=== PATIENT | male | born 1955 | race Caucasian/White ===

== ENCOUNTER → 2017-04-06 | Outpatient (CLI) | payer OTHER ==
[~2017-04-06] MED LIST: ASPIR 8181 M1 PO; ENDOCET 5-3251 EACH PO; LIPITOR40 MG PO; NORVASC5 MG PO
== END | disposition home or self-care (01) ==
LOC: CDC 10:09
DX: C61 Malignant neoplasm of prostate (principal)
CPT/HCPCS: 93000

== ENCOUNTER 2017-04-10 22:06 | Inpatient (IN) | payer OTHER ==
[~2017-04-10] VITALS: Ht 182.9 cm; Wt 98.4 kg
[~2017-04-10 22:06] MED LIST changes: -ENDOCET 5-3251 EACH PO
[2017-04-11 06:41] VITALS: BP 149/86
[2017-04-11 14:49] LABS: HEMATOCRIT 34.9 % (38.0-50.0); MCV 94.8 FL (86-99)
[2017-04-11 15:59] VITALS: BP 103/60
[2017-04-11 19:10] VITALS: BP 100/57
[2017-04-11 22:51] VITALS: BP 98/53
[2017-04-12 03:15] VITALS: BP 102/59
[2017-04-12 07:30] VITALS: BP 91/61
[2017-04-12 09:04] LABS: ANION GAP 7 MEQ/L (2-14); CHLORIDE 104 MEQ/L (99-109); GFR ESTIMATE (CALCULATED) > 59 mL/min/; GLUCOSE 95 mg/dL (70-99); POTASSIUM 4.2 MEQ/L (3.7-5.4); SAMPLE HEMOLYSIS CHECK 0; SAMPLE ICTERIC CHECK 0; SAMPLE LIPEMIA CHECK 0; SODIUM 137 MEQ/L (136-147); UREA NITROGEN (BUN) 16 mg/dL (9-23)
[2017-04-12 10:00] VITALS: BP 100/55
[2017-04-12 15:20] VITALS: BP 112/61
[2017-04-13] VITALS: BP 112/61
[2017-04-13 00:36] VITALS: BP 112/61
[2017-04-13] MEDS ORDERED: ENDOCET 5-3251 EACH PO (09:34)
== END 2017-04-13 12:40 | disposition home or self-care (01) | DRG 708 ==
LOC: 2SOUTH → ENRESERV 22:06 → 2SOUTH 04-11 05:40 → ENRESERV 04-11 13:22 → 5EAST 04-11 15:11 → ENPENDDIS 04-13 → 5EAST 04-13 12:40
PROVIDERS: Urology
PROC: 07BC0ZX Excision of Pelvis Lymphatic, Open Approach, Diagnostic (ICD-10-PCS; principal; 2017-04-11)
PROC: 0VT00ZZ Resection of Prostate, Open Approach (ICD-10-PCS; principal; 2017-04-11)
DX: C61 Malignant neoplasm of prostate (principal); I10 Essential (primary) hypertension; Z82.49 Family history of ischemic heart disease and other diseases of the circulatory system; E78.5 Hyperlipidemia, unspecified; Z84.2 Family history of other diseases of the genitourinary system
CPT/HCPCS: 80048; 85014; 85018; 88305; 88309; J0131; J0330; J1100; J1170; J1335; J1885; J2250; J2405; J2710; J3010; J7050; J7120

== ENCOUNTER 2017-04-15 18:21 | Emergency (ER) | payer OTHER ==
[~2017-04-15] VITALS: Ht 182.9 cm; Wt 92.4 kg
[~2017-04-15 18:21] MED LIST changes: +ENDOCET 5-3251 EACH PO
[2017-04-15 20:40] VITALS: BP 157/88
== END 2017-04-15 20:41 | disposition home or self-care (01) ==
LOC: EME 18:21 → RME 18:21
DX: T83.091A Other mechanical complication of indwelling urethral catheter, initial encounter (principal); Y73.8 Miscellaneous gastroenterology and urology devices associated with adverse incidents, not elsewhere classified; Z85.46 Personal history of malignant neoplasm of prostate; I10 Essential (primary) hypertension; Z90.79 Acquired absence of other genital organ(s); Z79.82 Long term (current) use of aspirin
CPT/HCPCS: 99281

== ENCOUNTER 2017-06-03 11:32 | Inpatient (IN) | payer OTHER ==
[~2017-06-03] VITALS: Ht 182.9 cm; Wt 89.9 kg
[2017-06-03 11:55] LABS: HEMATOCRIT 39.3 % (38.0-50.0); MCH 30.3 PG (29.0-34.0); MCHC 33.6 G/DL (30.0-36.0); MCV 90.3 FL (86-99); MEAN PLAT.VOLUME 10.3 uM^3 (9.0-12.4); PLATELET COUNT 291 K/uL (156-360); RBC DIS.WIDTH-CV 16.5 % (11.8-14.6); RBC DIS.WIDTH-SD 55.2 % (39-53); RED BLOOD COUNT 4.35 M/uL (4.00-5.50); WHITE BLOOD COUNT 6.8 K/uL (4.1-10.2)
[2017-06-03 12:03] LABS: CHLORIDE 99 mEq/L (99-109); POTASSIUM 3.6 mEq/L (3.7-5.4); SODIUM 134 mEq/L (136-147)
[2017-06-03 12:06] LABS: GLUCOSE 109 mg/dL (70-99)
[2017-06-03 12:07] LABS: ANION GAP 11 MEQ/L (2-14); TOTAL BILIRUBIN 17.4 mg/dL (0.0-1.0)
[2017-06-03 12:09] LABS: ALKALINE PHOSPHATASE 1320 IU/L (3-129); GFR ESTIMATE (CALCULATED) > 59 mL/min/
[2017-06-03 12:11] LABS: DIRECT BILIRUBIN 11.6 mg/dL (0.0-0.3); UREA NITROGEN (BUN) 10 mg/dL (9-23)
[2017-06-03 12:13] LABS: LIPASE 30 U/L (1.0-51.0)
[2017-06-03 12:40] LABS: ADD MIUA? NO; BILIRUBIN MODERATE; BLOOD NEGATIVE; COLOR AMBER ((YELLOW)); GLUCOSE (STRIP) NEGATIVE; KETONES NEGATIVE; LEUKOCYTES NEGATIVE; NITRITE NEGATIVE; PROTEIN (STRIP) NEGATIVE; UCUL ADDED? NO
[2017-06-03 13:05] LABS: ICTOTEST POSITIVE
[2017-06-03 16:30] VITALS: BP 124/80
[2017-06-03 20:05] VITALS: BP 136/77
[2017-06-04] VITALS (7 sets, daily range): BP systolic 137–168; BP diastolic 63–88
[2017-06-04 06:54] LABS: HEMATOCRIT 35.4 % (38.0-50.0); MCH 29.9 PG (29.0-34.0); MCHC 33.1 G/DL (30.0-36.0); MCV 90.5 FL (86-99); MEAN PLAT.VOLUME 11.1 uM^3 (9.0-12.4); PLATELET COUNT 291 K/uL (156-360); RBC DIS.WIDTH-CV 16.3 % (11.8-14.6); RBC DIS.WIDTH-SD 54.7 % (39-53); RED BLOOD COUNT 3.91 M/uL (4.00-5.50); WHITE BLOOD COUNT 6.3 K/uL (4.1-10.2)
[2017-06-04 07:38] LABS: ALKALINE PHOSPHATASE 1200 IU/L (3-129); ANION GAP 9 MEQ/L (2-14); CHLORIDE 103 MEQ/L (99-109); GFR ESTIMATE (CALCULATED) > 59 mL/min/; GLUCOSE 121 mg/dL (70-99); SAMPLE HEMOLYSIS CHECK 0; SAMPLE ICTERIC CHECK 3; SAMPLE LIPEMIA CHECK 0; SODIUM 138 MEQ/L (136-147); UREA NITROGEN (BUN) 11 mg/dL (9-23)
[2017-06-05 03:39] VITALS: BP 134/72
[2017-06-05 06:29] LABS: BASOPHIL COUNT 0.1 K/uL (0-0.1); EOSINOPHIL (%) 5.5 % (0-5); EOSINOPHIL COUNT 0.4 K/uL (0-0.3); HEMATOCRIT 33.4 % (38.0-50.0); IMMATURE GRANULOCYTE (%) 0.3 % (0.0-0.7); INSTRUMENT ABS NEUTROPHIL CT 4.8 K/uL; LYMPHOCYTE COUNT 0.8 K/uL (1.0-2.8); MCH 31.6 PG (29.0-34.0); MCHC 35.3 G/DL (30.0-36.0); MCV 89.5 FL (86-99); MEAN PLAT.VOLUME 10.8 uM^3 (9.0-12.4); MONOCYTE (%) 9.1 % (3-12); MONOCYTE COUNT 0.6 K/uL (0-0.8); NEUTROPHIL (%) 71.5 % (45-76); NEUTROPHIL COUNT 4.8 K/uL (1.8-6.4); PLATELET COUNT 271 K/uL (156-360); RBC DIS.WIDTH-CV 16.7 % (11.8-14.6); RED BLOOD COUNT 3.73 M/uL (4.00-5.50); WHITE BLOOD COUNT 6.7 K/uL (4.1-10.2)
[2017-06-05 07:10] LABS: ALKALINE PHOSPHATASE 1055 IU/L (3-129); ANION GAP 9 MEQ/L (2-14); CHLORIDE 103 MEQ/L (99-109); GFR ESTIMATE (CALCULATED) > 59 mL/min/; GLUCOSE 118 mg/dL (70-99); POTASSIUM 3.6 MEQ/L (3.7-5.4); SAMPLE HEMOLYSIS CHECK 0; SAMPLE ICTERIC CHECK 3; SAMPLE LIPEMIA CHECK 0; SODIUM 138 MEQ/L (136-147); TOTAL BILIRUBIN 15.8 MG/DL (0.0-1.0); UREA NITROGEN (BUN) 8 mg/dL (9-23)
[2017-06-05 07:31] VITALS: BP 131/70
[2017-06-05 12:01] VITALS: BP 145/79
[2017-06-05 16:18] VITALS: BP 152/76
[2017-06-05 19:44] VITALS: BP 157/76
[2017-06-06] VITALS (7 sets, daily range): BP systolic 116–153; BP diastolic 64–89
[2017-06-06 06:47] LABS: BASOPHIL COUNT 0.1 K/uL (0-0.1); EOSINOPHIL (%) 6.1 % (0-5); EOSINOPHIL COUNT 0.4 K/uL (0-0.3); HEMATOCRIT 34.2 % (38.0-50.0); IMMATURE GRANULOCYTE (%) 0.3 % (0.0-0.7); INSTRUMENT ABS NEUTROPHIL CT 4.9 K/uL; LYMPHOCYTE COUNT 0.8 K/uL (1.0-2.8); MCH 30.1 PG (29.0-34.0); MCHC 33.6 G/DL (30.0-36.0); MCV 89.5 FL (86-99); MEAN PLAT.VOLUME 10.9 uM^3 (9.0-12.4); MONOCYTE (%) 9.4 % (3-12); MONOCYTE COUNT 0.7 K/uL (0-0.8); NEUTROPHIL (%) 71.6 % (45-76); NEUTROPHIL COUNT 4.9 K/uL (1.8-6.4); PLATELET COUNT 277 K/uL (156-360); RBC DIS.WIDTH-CV 16.6 % (11.8-14.6); RBC DIS.WIDTH-SD 54.4 % (39-53); RED BLOOD COUNT 3.82 M/uL (4.00-5.50); WHITE BLOOD COUNT 6.9 K/uL (4.1-10.2)
[2017-06-06 07:16] LABS: ALKALINE PHOSPHATASE 1183 IU/L (3-129); ANION GAP 9 MEQ/L (2-14); CHLORIDE 103 MEQ/L (99-109); GFR ESTIMATE (CALCULATED) > 59 mL/min/; GLUCOSE 117 mg/dL (70-99); SAMPLE HEMOLYSIS CHECK 0; SAMPLE ICTERIC CHECK 3; SAMPLE LIPEMIA CHECK 0; SODIUM 136 MEQ/L (136-147); TOTAL BILIRUBIN 16.2 MG/DL (0.0-1.0); UREA NITROGEN (BUN) 8 mg/dL (9-23)
[2017-06-07 03:47] VITALS: BP 115/66
[2017-06-07 06:05] LABS: BASOPHIL COUNT 0.1 K/uL (0-0.1); EOSINOPHIL (%) 5.5 % (0-5); EOSINOPHIL COUNT 0.4 K/uL (0-0.3); HEMATOCRIT 32.1 % (38.0-50.0); IMMATURE GRANULOCYTE (%) 0.3 % (0.0-0.7); INSTRUMENT ABS NEUTROPHIL CT 4.8 K/uL; LYMPHOCYTE COUNT 0.9 K/uL (1.0-2.8); MCHC 33.6 G/DL (30.0-36.0); MCV 92.2 FL (86-99); MEAN PLAT.VOLUME 11.6 uM^3 (9.0-12.4); MONOCYTE (%) 7.5 % (3-12); MONOCYTE COUNT 0.5 K/uL (0-0.8); NEUTROPHIL (%) 72.2 % (45-76); NEUTROPHIL COUNT 4.8 K/uL (1.8-6.4); PLATELET COUNT 272 K/uL (156-360); RBC DIS.WIDTH-CV 16.7 % (11.8-14.6); RBC DIS.WIDTH-SD 56.9 % (39-53); RED BLOOD COUNT 3.48 M/uL (4.00-5.50); WHITE BLOOD COUNT 6.7 K/uL (4.1-10.2)
[2017-06-07 06:40] LABS: ALKALINE PHOSPHATASE 1023 IU/L (3-129); ANION GAP 8 MEQ/L (2-14); CHLORIDE 102 MEQ/L (99-109); GFR ESTIMATE (CALCULATED) > 59 mL/min/; GLUCOSE 110 mg/dL (70-99); POTASSIUM 4.1 MEQ/L (3.7-5.4); SAMPLE HEMOLYSIS CHECK 0; SAMPLE ICTERIC CHECK 2; SAMPLE LIPEMIA CHECK 0; SODIUM 139 MEQ/L (136-147); UREA NITROGEN (BUN) 7 mg/dL (9-23)
[2017-06-07 06:41] LABS: TOTAL BILIRUBIN 7.2 MG/DL (0.0-1.0)
[2017-06-07 07:23] VITALS: BP 107/59
[2017-06-07 12:30] VITALS: BP 127/75
== END 2017-06-07 13:46 | disposition home or self-care (01) | DRG 435 ==
LOC: EME 11:32 → EDOF 13:47 → 5SOUTH 13:47 → ENRESERV 13:48 → 5SOUTH 15:45
PROVIDERS: Internal Medicine
DX: C22.1 Intrahepatic bile duct carcinoma (principal); K83.1 Obstruction of bile duct; F10.20 Alcohol dependence, uncomplicated; E78.5 Hyperlipidemia, unspecified; E87.1 Hypo-osmolality and hyponatremia; E66.9 Obesity, unspecified; Z68.26 Body mass index [BMI] 26.0-26.9, adult; E86.0 Dehydration; E87.6 Hypokalemia; I10 Essential (primary) hypertension; Z85.46 Personal history of malignant neoplasm of prostate; Z90.79 Acquired absence of other genital organ(s)
CPT/HCPCS: 36415; 74183; 74329; 80053; 81003; 82248; 82977; 83690; 85025; 85027; 86803; 87081; 87340; 88108; 88305; 99281; 99284; C1769; C2625; J0295; J0330; J1650; J2250; J2405; J3010; J7042; J7050; S0028

== ENCOUNTER → 2017-11-15 | Outpatient (CLI) | payer OTHER ==
[~2017-11-15] MED LIST changes: +K-DUR20 MEQ PO
== END | disposition home or self-care (01) ==
LOC: PICC 13:00
DX: C22.1 Intrahepatic bile duct carcinoma (principal)
CPT/HCPCS: 76937

== ENCOUNTER → 2018-01-06 | Outpatient (CLI) | payer OTHER ==
[~2018-01-06] MED LIST changes: +ATIVAN0.5 MG PO; +BACTRIM,SEPT1 TABLET PO; +CLARITIN,ALAVAR10 MG PO; +CREON DR 36,001 EACH PO; +KLOR-CON SPRIN10 MEQ PO; +ROXICODONE5 MG PO; +ZOFRAN4 MG PO
[2018-01-06 10:12] LABS: INTER. NORMALIZED RATIO 1.3
[2018-01-06 10:15] LABS: PTT 29.5 SEC (25-37)
== END | disposition home or self-care (01) ==
LOC: OPR 09:28 → EDSTATUS 10:00
PROVIDERS: Internal Medicine Medical Oncology
PROC: 0JB83ZX Excision of Abdomen Subcutaneous Tissue and Fascia, Percutaneous Approach, Diagnostic (ICD-10-PCS; principal; 2018-01-06)
DX: R19.03 Right lower quadrant abdominal swelling, mass and lump (principal); C22.1 Intrahepatic bile duct carcinoma; D70.9 Neutropenia, unspecified; Z85.820 Personal history of malignant melanoma of skin; Z85.46 Personal history of malignant neoplasm of prostate; I10 Essential (primary) hypertension; F10.11 Alcohol abuse, in remission
CPT/HCPCS: 77012; 85610; 85730; 88305; 88342 TC

== ENCOUNTER 2018-01-09 13:36 | Emergency (ER) | payer OTHER ==
[~2018-01-09] VITALS: Ht 185.4 cm; Wt 78.1 kg
[~2018-01-09 13:36] MED LIST changes: -BACTRIM,SEPT1 TABLET PO
[2018-01-09 14:30] LABS: HEMATOCRIT 27.4 % (38.0-50.0); HEMOGLOBIN 9.1 G/DL (12.5-16.6); MCH 29.4 PG (29.0-34.0); MCHC 33.2 G/DL (30.0-36.0); MCV 88.4 FL (86-99); PLATELET COUNT 232 K/uL (156-360); RBC DIS.WIDTH-CV 17.9 % (11.8-14.6); RBC DIS.WIDTH-SD 58.4 % (39-53); WHITE BLOOD COUNT 10.3 K/uL (4.1-10.2)
[2018-01-09 14:42] LABS: ALBUMIN 3.1 g/dL (3.2-4.8); CHLORIDE 96 mEq/L (99-109); POTASSIUM 3.9 mEq/L (3.7-5.4); SODIUM 133 mEq/L (136-147)
[2018-01-09 14:44] LABS: GLUCOSE 168 mg/dL (70-99)
[2018-01-09 14:48] LABS: ALKALINE PHOSPHATASE 182 IU/L (3-129); CREATININE 0.8 mg/dL (0.6-1.3); GFR ESTIMATE (CALCULATED) > 59 mL/min/ (58.99-99999)
[2018-01-09 14:49] LABS: UREA NITROGEN (BUN) 10 mg/dL (9-23)
[2018-01-09 14:50] LABS: AST (GOT) 21 IU/L (2-34)
[2018-01-09 14:51] LABS: ALT (GPT) 17 IU/L (3-49)
[2018-01-09] MEDS ORDERED: BACTRIM,SEPT1 TABLET PO (16:45)
[2018-01-09 18:29] VITALS: BP 102/56
== END 2018-01-09 18:31 | disposition home or self-care (01) ==
LOC: EME 13:36
PROVIDERS: Emergency Medicine Emergency Medical Services
PROC: 0H97XZZ Drainage of Abdomen Skin, External Approach (ICD-10-PCS; principal; 2018-01-09)
DX: L02.211 Cutaneous abscess of abdominal wall (principal); L03.311 Cellulitis of abdominal wall; C22.1 Intrahepatic bile duct carcinoma; R10.9 Unspecified abdominal pain; Z98.890 Other specified postprocedural states; I10 Essential (primary) hypertension
CPT/HCPCS: 74177; 80053; 81003; 85027; 87070; 87075; 87205; 99281; 99284; J0696; J7030; J7040

== ENCOUNTER 2018-01-22 08:25 | Emergency (ER) | payer OTHER ==
[~2018-01-22] VITALS: Ht 185.4 cm; Wt 74.7 kg
[~2018-01-22 08:25] MED LIST changes: +BACTRIM,SEPT1 TABLET PO; +CREON DR 12,001 EAC1 PO
[2018-01-22] MEDS ORDERED: CLEOCIN300 MG PO (10:01)
[2018-01-22 10:37] VITALS: BP 100/61
== END 2018-01-22 11:06 | disposition home or self-care (01) ==
LOC: EME 08:25
DX: T81.4XXA Infection following a procedure, initial encounter (principal); L03.311 Cellulitis of abdominal wall; Z86.14 Personal history of Methicillin resistant Staphylococcus aureus infection; Z85.46 Personal history of malignant neoplasm of prostate; Z92.21 Personal history of antineoplastic chemotherapy
CPT/HCPCS: 87070; 87075; 87205; 99281; 99284